=== PATIENT | male | born 1965 | race Caucasian/White ===

== ENCOUNTER → 2022-06-29 08:59 | Outpatient (BNVA) | payer MEDICAID, SELFPAY | PROVIDERS: Visit Provider Nurse Practitioner Family | DX: M25.50 Pain in unspecified joint (principal) | CPT/HCPCS: 86038; 86431 ==

== ENCOUNTER 2022-11-16 14:56 | Outpatient (CLI) | payer MEDICAID, SELFPAY ==
--- NOTE | 2022-11-16 15:15 | MR_ITS ---
WS: [email or web address] MRI LUMBAR SPINE NONCONTRAST TECHNIQUE: Sagittal T1, T2 and STIR imaging. Axial T1 and T2 imaging. CLINICAL INFORMATION: M54.50 - Low back pain, unspecified COMPARISON: None. FINDINGS: Normal lumbar alignment. No acute compression. No high-grade central canal stenosis. L1-L2: Minimal annular bulging. Mild facet arthropathy. Spinal canal and foramen are patent. L2-L3: Mild annular bulging with slight narrowing of the LEFT subarticular recess. Mild facet arthrop athy. Mild bilateral foraminal narrowing. L3-L4: Mild annular bulging with slight narrowing of the LEFT subarticular recess. Mild facet arthrop athy. Small LEFT foraminal protrusion with an annular fissure impinges the exiting LEFT L3 nerve root with mild to moderate foraminal narrowing. Recommend correlation LEFT L3 nerve root symptoms. L4-L5: Mild annular bulging slightly impinges the traversing L5 nerve roots bilaterally. Mild central canal stenosis. Mild facet arthropathy. Slight impingement on the exiting LEFT L4 nerve root proxima lly. Mild LEFT foraminal narrowing. L5-S1: Shallow central disc bulging with mild central canal stenosis. Impingement on the traversing S 1 nerve roots bilaterally. Mild LEFT and no significant RIGHT foraminal narrowing. Mild facet arthrop athy. Visualized pelvic bony structures: Normal. Paravertebral soft tissues: Normal. MR/MR lumbar spine wo con* [id number] IMPRESSION: 1. Normal lumbar alignment. No acute compression. No high-grade central canal stenosis. 2. Annular bulging L4-L5 with impingement on the traversing L5 nerve roots shar aterally with mild central canal stenosis. Mild LEFT L4-L5 foraminal narrowing slightly impinges the exiting LEFT L4 nerve root with mild LEFT foraminal narro wing. 3. Annular bulging L5-S1 impinges the traversing S1 nerve roots bilaterally. M ild central canal stenosis. 4. LEFT foraminal protrusion L3-L4 with a small annular fissure impinges the e xiting LEFT L3 nerve root with mild to moderate LEFT foraminal narrowing.Correl ation LEFT L3 nerve root symptoms.
== END 2022-11-16 14:57 | disposition home or self-care (01) ==
LOC: RAD 14:57
PROVIDERS: PCP Nurse Practitioner Family; Visit Provider Nurse Practitioner Family
DX: M54.50 Low back pain, unspecified (principal); M79.604 Pain in right leg
CPT/HCPCS: 72148

== ENCOUNTER 2023-08-21 08:26 | Outpatient (RCR) | payer MEDICAID, SELFPAY | END 2023-08-31 23:59 | disposition home or self-care (01) | LOC: SPT 08:26 | PROVIDERS: PCP Nurse Practitioner Family; Visit Provider Nurse Practitioner Family | DX: M54.9 Dorsalgia, unspecified (principal); G89.29 Other chronic pain | CPT/HCPCS: 97110; 97161 ==

== ENCOUNTER 2023-09-01 06:00 | Outpatient (RCR) | payer MEDICAID, SELFPAY | END 2023-09-16 23:59 | disposition home or self-care (01) | LOC: SPT 06:00 | PROVIDERS: PCP Nurse Practitioner Family; Visit Provider Nurse Practitioner Family | DX: M54.9 Dorsalgia, unspecified (principal); G89.29 Other chronic pain | CPT/HCPCS: 97110 ==

== ENCOUNTER → 2023-09-26 10:38 | Outpatient (BNVA) | payer MEDICAID, SELFPAY | PROVIDERS: PCP Nurse Practitioner Family; Visit Provider Family Medicine | DX: J44.9 Chronic obstructive pulmonary disease, unspecified (principal); Z12.5 Encounter for screening for malignant neoplasm of prostate; Z68.29 Body mass index [BMI] 29.0-29.9, adult; G47.00 Insomnia, unspecified | CPT/HCPCS: 80053; 80061; 83036; 84153; 84439; 84443; 85025 ==

== ENCOUNTER 2023-10-17 10:30 | Outpatient (CLI) | payer MEDICAID, SELFPAY ==
--- NOTE | 2023-10-17 10:45 | CT_ITS ---
WS: [email or web address] LDCT LUNG CANCER SCREENING TECHNIQUE: Noncontrast CT of the chest with coronal and sagittal reformatted images. CLINICAL INFORMATION: lung cancer screening COMPARISON: None. DLP: 92.48 mGy.cm DIvol: Mean CTDIvol: 1.90 (mGy) All CT scans at [facility] use at least one of these dose optimization techniques: automat ed exposure control; mA and/or kV adjustment per patient size (includes targeted exams where dose is matched to clinical indication); or iterative reconstruction. FINDINGS: Normal caliber thoracic aorta. Aortic calcification. No mediastinal or hilar lymphadenopathy. No axil geena lymphadenopathy. Cholelithiasis partially visualized. Normal GE junction. Tiny noncalcified nodule LEFT upper lobe ant eriorly measuring 4 mm. Tiny noncalcified nodule LEFT lower lobe laterally. Adrenal glands are normal . IMPRESSION: CT/CT lung screening [id number] LUNG-RADS: 2-Benign Appearance or Behavior FOLLOW UP: 12 Month: Continue annual screening with LDCT
== END 2023-10-17 10:31 | disposition home or self-care (01) ==
LOC: RAD 10:30
PROVIDERS: PCP Nurse Practitioner Family; Visit Provider Family Medicine
DX: Z12.2 Encounter for screening for malignant neoplasm of respiratory organs (principal); F17.219 Nicotine dependence, cigarettes, with unspecified nicotine-induced disorders
CPT/HCPCS: 71271

== ENCOUNTER → 2023-10-23 10:03 | Outpatient (BNVA) | payer MEDICAID, SELFPAY | PROVIDERS: PCP Family Medicine; Referring Provider Family Medicine; Visit Provider Specialist | DX: M25.551 Pain in right hip | CPT/HCPCS: 73502 ==

== ENCOUNTER 2023-12-18 15:39 | Outpatient (CLI) | payer MEDICAID, SELFPAY ==
--- NOTE | 2023-12-18 16:00 | MR_ITS ---
WS: [email or web address] EXAMINATION: MR hip RT wo con* [id number] ORDER DATE: 12/18/2023 4:16 PM COMPARISON: None. HISTORY: right hip pain CONTRAST: Radiograph 10/23/2023 TECHNIQUE: Coronal STIR of the Pelvis. Coronal proton density, coronal T1, axial T2 fat sat, axial T1 , sagittal T2 fat sat, and sagittal T1 performed of the hip. FINDINGS: Moderate degenerative narrowing RIGHT hip. Hypertrophic changes about the acetabulum. No evidence of avascular necrosis. No acute fractures. Normal bone marrow signal in the femoral head and neck. No si gnificant joint effusion. Normal bone marrow signal in the LEFT hip. Normal bone marrow signal in the pelvis and sacrum. Normal visualized pubic rami. Normal pelvic soft tissues. No other suspicious findings. IMPRESSION: 1. Moderate degenerative narrowing RIGHT hip. No acute fractures. Hypertrophic changes about the soraida tabulum. 2. No evidence of avascular necrosis or edema in the RIGHT femoral head or neck. 3. Normal bone marrow signal in the bony pelvis and sacrum. 4. No other suspicious findings.
== END 2023-12-18 15:40 | disposition home or self-care (01) ==
LOC: RAD 15:39
PROVIDERS: PCP Family Medicine; Visit Provider Specialist
DX: M16.11 Unilateral primary osteoarthritis, right hip (principal)
CPT/HCPCS: 73721

== ENCOUNTER → 2024-01-29 11:04 | Outpatient (BNVA) | payer MEDICAID, SELFPAY | PROVIDERS: PCP Family Medicine; Visit Provider Family Medicine | DX: E11.9 Type 2 diabetes mellitus without complications (principal) | CPT/HCPCS: 80053; 83036 ==

== ENCOUNTER → 2024-02-18 10:02 | Outpatient (BNVA) | payer MEDICAID, SELFPAY | PROVIDERS: PCP Family Medicine; Visit Provider Orthopaedic Surgery | DX: M54.41 Lumbago with sciatica, right side (principal); G89.29 Other chronic pain; M48.062 Spinal stenosis, lumbar region with neurogenic claudication | CPT/HCPCS: 36415; 72110; 80053; 81001; 85025 ==

== ENCOUNTER 2024-07-01 12:27 | Outpatient (CLI) | payer MEDICAID, SELFPAY ==
--- NOTE | 2024-07-01 12:33 | XR_ITS ---
WS: [email or web address] Cervical spine, 3 views, 07/01/2024 Clinical Data: pain Comparison: None. Findings: No compression fractures are seen. The disc heights are normal. There is no prevertebral so ft tissue swelling. The odontoid is unremarkable. The soft tissues of the neck and the lung apices ar e normal. XR/XR cervical spine 3V* [id number] Impression: Negative cervical spine.
--- NOTE | 2024-07-01 12:33 | XR_ITS ---
WS: [email or web address] Thoracic spine, AP and lateral views, 07/01/2024 Clinical Data: pain Comparison: None. Findings: No compression fractures are seen. The disc heights are normal. The paravertebral region is normal. XR/XR thoracic spine 3V* [id number] Impression: Negative thoracic spine.
== END 2024-07-01 12:28 | disposition home or self-care (01) ==
LOC: RAD 12:28
PROVIDERS: PCP Family Medicine; Visit Provider Family Medicine
DX: M54.2 Cervicalgia (principal); G89.29 Other chronic pain
CPT/HCPCS: 72040; 72072

== ENCOUNTER → 2024-09-01 09:31 | Outpatient (BNVA) | payer MEDICAID, SELFPAY | PROVIDERS: PCP Family Medicine; Visit Provider Podiatrist Foot & Ankle Surgery | DX: M25.571 Pain in right ankle and joints of right foot (principal); G89.29 Other chronic pain; M76.71 Peroneal tendinitis, right leg; E11.9 Type 2 diabetes mellitus without complications | CPT/HCPCS: 73610 ==

== ENCOUNTER → 2024-10-21 11:50 | Outpatient (BNVA) | payer MEDICAID, SELFPAY | PROVIDERS: PCP Family Medicine; Visit Provider Family Medicine | DX: E11.9 Type 2 diabetes mellitus without complications (principal); M75.102 Unspecified rotator cuff tear or rupture of left shoulder, not specified as traumatic | CPT/HCPCS: 73030; 80053; 83036 ==

== ENCOUNTER → 2024-10-23 10:38 | Outpatient (BNVA) | payer MEDICAID, SELFPAY | PROVIDERS: PCP Family Medicine; Visit Provider Nurse Practitioner | DX: M19.012 Primary osteoarthritis, left shoulder; R29.898 Other symptoms and signs involving the musculoskeletal system | CPT/HCPCS: 73030 ==

== ENCOUNTER 2025-01-25 10:19 | Outpatient (CLI) | payer MEDICAID, SELFPAY ==
--- NOTE | 2025-01-25 11:00 | MR_ITS ---
WS: [id number] MRI LEFT SHOULDER HISTORY: left shoulder pain COMPARISON: Radiograph 10/23/2024 TECHNIQUE: Multiplanar sequences of the shoulder joint are submitted. Moderate AC joint arthritis. Joint space is narrowed with hypertrophic osteophytes and hypertrophic soft tissue. Small amount of fluid in the subdeltoid bursa. Mild subacromial impingement. No os acromion. Normal position of the biceps tendon. Small amount of increased fluid in the biceps tendon sheath. Mildly high riding humeral head. Mild narrowing at the glenohumeral joint. Subchondral cystic changes in the posterolateral humeral head. Mild tendinopathy in the distal supraspinatus tendon. There is no tendon tear identified. Very mild surface fraying along both the articular and bursal surfaces of the supraspinatus tendon. No muscle atrophy or edema. There is a tear at the base of the posterior labrum. Otherwise labrum demonstrates intrasubstance degeneration but there is no additional tear identified. There is a small subchondral cyst in the anterior glenoid. MR/MR shoulder LT wo con* [id number] IMPRESSION: 1. Moderate AC joint arthritis. 2. No rotator cuff tendon tear. 3. Moderate tendinopathy in the distal supraspinatus tendon. 4. Focal tear in the base of the posterior labrum. No additional labral tear. 5. Mild tenosynovitis biceps tendon sheath. No tendon tear.
== END 2025-01-25 10:20 | disposition home or self-care (01) ==
LOC: RAD 10:19
PROVIDERS: PCP Family Medicine; Visit Provider Nurse Practitioner
DX: M75.102 Unspecified rotator cuff tear or rupture of left shoulder, not specified as traumatic (principal); M13.812 Other specified arthritis, left shoulder; R93.6 Abnormal findings on diagnostic imaging of limbs; S43.492A Other sprain of left shoulder joint, initial encounter; X58.XXXA Exposure to other specified factors, initial encounter; M65.912 Unspecified synovitis and tenosynovitis, left shoulder; M25.712 Osteophyte, left shoulder
CPT/HCPCS: 73221

== ENCOUNTER 2025-02-12 14:14 | Outpatient (CLI) | payer MEDICAID, SELFPAY ==
--- NOTE | 2025-02-12 14:30 | CTR_ITS ---
PROCEDURE INFORMATION: Exam: CT Abdomen And Pelvis Without Contrast Exam date and time: 02/12/2025 2:19 PM Age: 59 years old Clinical indication: Condition or disease; Complications not specified; Hernia not specified; Prior surgery; Surgery date: 6+ months; Surgery type: Right inguinal hernia, 13 colectomy (diverticulitis); Additional info: K46.9 - unspecified abdominal hernia without obstruction . . . , allergy to contrast therefore Dr richter gave approval to TECHNIQUE: Imaging protocol: Computed tomography of the abdomen and pelvis without contrast. Radiation optimization: All CT scans at this facility use at least one of these dose optimization techniques: automated exposure control; mA and/or kV adjustment per patient size (includes targeted exams where dose is matched to clinical indication); or iterative reconstruction. COMPARISON: CR XR hip RT 2-3V wo/w pel* [id number] 10/23/2023 10:06 AM RADIATION DOSE METRICS: Total DLP (mGy-cm): 637.59 FINDINGS: Liver: Normal. No mass. Gallbladder and biliary ducts: Cholelithiasis. Pancreas: Pancreatic atrophy. Spleen: Normal. No splenomegaly. Adrenal glands: Normal. No mass. Kidneys and ureters: Normal. No hydronephrosis. Stomach and bowel: Status post surgical change of the upper rectum/lower sigmoid colon. Appendix: No evidence of appendicitis. Intraperitoneal space: Unremarkable. No free air. No significant fluid collection. Vasculature: Unremarkable. No abdominal aortic aneurysm. Lymph nodes: Prominent bilateral inguinal lymph nodes. Urinary bladder: Unremarkable as visualized. Reproductive: Unremarkable as visualized. Bones/joints: Unremarkable. No acute fracture. Soft tissues: Postsurgical change of the right inguinal canal and potentially at the left inguinal canal. Fat containing umbilical hernia. CT/CT abdomen pelvis wo con [id number] IMPRESSION: 1. Postsurgical change of the right inguinal canal and potentially at the left inguinal canal. 2. Prominent bilateral inguinal lymph nodes, nonspecific, possibly reactive. This can be further followed up with ultrasound if clinically warranted.
== END 2025-02-12 14:15 | disposition home or self-care (01) ==
PROVIDERS: PCP Family Medicine; Visit Provider Surgery
DX: K40.90 Unilateral inguinal hernia, without obstruction or gangrene, not specified as recurrent (principal); K42.9 Umbilical hernia without obstruction or gangrene; Z98.890 Other specified postprocedural states; R59.0 Localized enlarged lymph nodes; K80.20 Calculus of gallbladder without cholecystitis without obstruction; K86.89 Other specified diseases of pancreas
CPT/HCPCS: 74176

== ENCOUNTER → 2025-05-10 08:54 | Outpatient (BNVA) | payer MEDICARE, SELFPAY | PROVIDERS: PCP Family Medicine; Visit Provider Anesthesiology Pain Medicine | DX: M25.551 Pain in right hip (principal); G89.29 Other chronic pain; M54.50 Low back pain, unspecified; M79.604 Pain in right leg; M51.16 Intervertebral disc disorders with radiculopathy, lumbar region; M47.816 Spondylosis without myelopathy or radiculopathy, lumbar region | CPT/HCPCS: 99214 ==

== ENCOUNTER → 2025-05-19 09:30 | Outpatient (BNVA) | payer MEDICARE, MEDICAID, SELFPAY | PROVIDERS: PCP Family Medicine; Visit Provider Anesthesiology Pain Medicine | DX: M16.11 Unilateral primary osteoarthritis, right hip (principal); Z01.818 Encounter for other preprocedural examination; E11.9 Type 2 diabetes mellitus without complications | CPT/HCPCS: 20610; 77002; J1010; J3490 ==

== ENCOUNTER → 2025-05-31 09:38 | Outpatient (BNVA) | payer MEDICARE, MEDICAID, SELFPAY | PROVIDERS: PCP Family Medicine; Visit Provider Anesthesiology Pain Medicine | DX: M25.551 Pain in right hip (principal); G89.29 Other chronic pain; M54.50 Low back pain, unspecified; M79.604 Pain in right leg; M51.16 Intervertebral disc disorders with radiculopathy, lumbar region; M47.816 Spondylosis without myelopathy or radiculopathy, lumbar region | CPT/HCPCS: 99214 ==

== ENCOUNTER → 2025-06-07 09:28 | Outpatient (BNVA) | payer MEDICARE, MEDICAID, SELFPAY | PROVIDERS: PCP Family Medicine; Visit Provider Nurse Practitioner | DX: M19.012 Primary osteoarthritis, left shoulder (principal); M67.912 Unspecified disorder of synovium and tendon, left shoulder; M75.22 Bicipital tendinitis, left shoulder; R29.898 Other symptoms and signs involving the musculoskeletal system | CPT/HCPCS: 20610; 99213; J1100; J2795; J3301; J9999 ==

== ENCOUNTER 2025-08-03 12:08 | Outpatient (CLI) | payer MEDICARE, SELFPAY ==
[2025-08-03 13:18] LABS: Hematocrit 47.3 % (37-53); Hemoglobin 15.60 g/dL (11.27-16.99); Mean Corpuscular HGB Conc 33.0 g/dL (30-55); Mean Corpuscular Hemoglobin 28.3 pg (27-33); Mean Corpuscular Volume 85.8 fl (82-101); Nucleated Red Blood Cells % 0 %; Platelet Count 233 10^3/cmm (157-399); Red Blood Count 5.51 10^6/uL (3.85-5.65); White Blood Count 8.37 10^3/uL (3.29-11.43)
[2025-08-03 13:46] LABS: Estmated Average Glucose 194; Hemoglobin A1C 8.4 % (4.0-6.0)
[2025-08-03 13:53] LABS: Alanine Aminotransferase 28 U/L (0-41); Albumin Level 4.5 g/dL (3.5-5.2); Alkaline Phosphatase 96 U/L (40-130); Anion Gap 16.9 (5-19); Aspartate Amino Transferase 22 U/L (0-40); Blood Urea Nitrogen 24 mg/dL (6-20); Calcium 9.8 mg/dL (8.5-10.5); Carbon Dioxide 25 mmol/L (22-29); Chloride 100 mmol/L (98-107); Cholesterol 203 mg/dL (0-200); Free T4 Free Thyroxine 1.07 ng/dL (0.82-1.77); Globulin 3.4 g/dL (1.3-4.6); Glucose 160 mg/dL (65-115); HDL Cholesterol 38 mg/dL (60-100); Osmolality Calculated 293 mOsm/kg (285-295); Potassium 3.9 mmol/L (3.5-5.1); Sodium 138 mmol/L (136-145); Thyroid Stimulating Hormone 1.08 uIU/mL (0.27-4.20); Total Protein 7.9 g/dL (6.6-8.7); Triglycerides 200 mg/dL (0-150)
== END 2025-08-03 12:09 | disposition home or self-care (01) ==
PROVIDERS: PCP Family Medicine; Visit Provider Family Medicine
DX: E11.9 Type 2 diabetes mellitus without complications (principal)
CPT/HCPCS: 36415; 80053; 80061; 83036; 84439; 84443; 85025

== ENCOUNTER → 2025-11-15 10:40 | Outpatient (BNVA) | payer MEDICARE, MEDICAID, SELFPAY | PROVIDERS: PCP Family Medicine; Visit Provider Family Medicine | DX: E11.9 Type 2 diabetes mellitus without complications (principal) | CPT/HCPCS: 80053; 83036 ==